=== PATIENT | female | born 1950 | race Caucasian/White ===

== ENCOUNTER 2020-03-18 05:11 | Emergency (ER) | payer MEDICARE ==
[~2020-03-18 05:11] MED LIST: ARAVA 20 MG TAB20 MG PO; BACLOFEN20 MG PO; CATAPRES 0.1MG0.1 MG PO; CYCLOBENZAPRINE5 MG PO; DESYREL 50 MG T50 MG PO; DICLOFONO2.5 GM TP; FLONASE ALLER15.8 ML; GLUCOPHAGE 500500 MG PO; HUMALOG100 UNIT/3 SC; HUMIRA40 MG/0.4 SQ; IBU800 MG PO; IPRAT-ALBUT 0.5-3 ML INH; KEFLEX CAP 500500 MG PO; KLONOPIN TAB 00.5 MG PO; LOPID TAB 600600 MG PO; LOPRESSOR50 MG PO; NEURONTIN800 MG PO; NORCO 7.5-3251 EACH PO; NORVASC5 MG PO; OMEPRAZOLE20 MG PO; PLAQUENIL 200200 MG PO; PROZAC40 MG PO; SOLIQUA 100 UNIT3 ML SQ; VENTOLIN HFA 66.7 GM INH; ZANAFLEX4 M1 PO; ZITHROMAX250 MG PO; ZOCOR10 MG PO
[2020-03-18 05:51] LABS: RED BLOOD COUNT 3.31 M/UL (4.00-5.10); WHITE BLOOD COUNT 9.5 K/UL (4.5-11.0)
[2020-03-18 06:07] LABS: BUN/CREATININE RATIO 17 (0-10)
[2020-03-18] MEDS ORDERED: K-DUR TAB 20 M20 MEQ PO (09:02)
== END 2020-03-18 08:40 | disposition home or self-care (01) ==
LOC: ER1 05:11
PROVIDERS: Emergency Medicine; Family Medicine
DX: E87.6 Hypokalemia (principal); E11.40 Type 2 diabetes mellitus with diabetic neuropathy, unspecified; R94.6 Abnormal results of thyroid function studies; M79.605 Pain in left leg; M79.604 Pain in right leg; G89.29 Other chronic pain; F17.200 Nicotine dependence, unspecified, uncomplicated; Z88.5 Allergy status to narcotic agent; Z88.0 Allergy status to penicillin
CPT/HCPCS: 80053; 80307; 81001; 82550; 82553; 83874; 84439; 84443; 84484; 85025; 87086; 93005; 99285

== ENCOUNTER 2020-04-28 14:07 | Emergency (ER) | payer MEDICARE ==
[~2020-04-28 14:07] MED LIST changes: +K-DUR TAB 20 M20 MEQ PO
[2020-04-28 15:37] LABS: HEMOGLOBIN 10.3 gm/dl (12.3-15.3); RED BLOOD COUNT 3.37 M/UL (4.00-5.10); WHITE BLOOD COUNT 12.4 K/UL (4.5-11.0)
[2020-04-28 16:18] LABS: BUN/CREATININE RATIO 14 (0-10)
[2020-04-28] MEDS ORDERED: HYDROCODON-ACE1 EAC4 PO (18:29)
== END 2020-04-28 18:53 | disposition home or self-care (01) ==
LOC: ER1 14:07
PROVIDERS: Emergency Medicine
DX: S33.5XXA Sprain of ligaments of lumbar spine, initial encounter (principal); S70.02XA Contusion of left hip, initial encounter; E11.649 Type 2 diabetes mellitus with hypoglycemia without coma; I10 Essential (primary) hypertension; F17.200 Nicotine dependence, unspecified, uncomplicated; Z79.4 Long term (current) use of insulin; W19.XXXA Unspecified fall, initial encounter
CPT/HCPCS: 36415; 71045; 72100; 73502; 73552; 80053; 82550; 82553; 82962; 83874; 84484; 85025; 93005; 99284